=== PATIENT | female | born 1970 | race Two or more races ===

== ENCOUNTER → 2024-07-14 | Outpatient (CLI) | payer BC, MEDICAID, SELFPAY ==
--- NOTE | 2024-07-14 13:45 | XR_ITS ---
Examination: Breast ultrasound complete, bilateral Date and time of exam: July 14, 2024 1347 hours INDICATIONS: Left breast pain beginning 6 months ago, family history sister breast cancer Technique: Real-time grayscale ultrasonographic imaging bilateral breasts, including all 4 quadrants as well as nipple retroareolar and axillary regions. Findings: Sonographic images right breast 1:00 cyst 5 x 4 mm, no solid nodules Sonographic images left breast 12:00 cyst, 9 x 11 mm, no solid nodules IMPRESSION: BI-RADS Category 2: Benign findings
--- NOTE | 2024-07-14 14:45 | XR_ITS ---
Examination: Diagnostic digital mammography, unilateral, left Computer aided detection 3-D breast Tomosynthesis, unilateral Date and time of exam: July 14, 2024 1418 hours INDICATIONS: Mammogram April 13, 2024 18 mm focal asymmetry left breast upper inner left breast anterior depth Technique: Nonmagnified MLO, CC views of the left breast have been obtained, reconstructed from 3-D Tomosynthesis images. R2 computer aided detection program utilized for evaluation of suspicious masses and/or abnormal calcifications. 3-D Tomosynthesis images obtained. Findings: The breast is heterogeneously dense, which may obscure small masses There remains asymmetry upper left breast on the spot compression view, probably benign Impression: BI-RADS category 3: Probably benign findings Recommend 1 additional 6 month left mammogram follow-up
== END | disposition home or self-care (01) ==
PROVIDERS: Referring Provider Nurse Practitioner Family; Visit Provider Nurse Practitioner Family
DX: R92.332 Mammographic heterogeneous density, left breast (principal); N60.02 Solitary cyst of left breast; N60.01 Solitary cyst of right breast; Z80.3 Family history of malignant neoplasm of breast
CPT/HCPCS: 76641; 77061; 77065; G0279

== ENCOUNTER 2024-07-22 10:17 | Emergency (ER) | payer BC, MEDICAID, SELFPAY ==
[2024-07-22 10:18] VITALS: BMI 36.0
[2024-07-22 10:22] VITALS: BP 133/88; PULSE 74; RESP 19; TEMP 36.9; O2SAT 97
--- NOTE | 2024-07-22 12:13 | PD.EDRME ---
Rapid Medical Screening Exam RME Arrival date/time: 07/22/24 10:17 54-year-old female presents to the emergency department today with complaints of left arm pain after fall yesterday Chief Complaint: Extremity Injury, Upper Time Seen by Provider: 07/22/24 10:18 Vital signs: Vital Signs Temperature 98.5 F 07/22/24 10:22 Pulse Rate 74 07/22/24 10:22 Respiratory Rate 19 07/22/24 10:22 Blood Pressure 133/88 H 07/22/24 10:22 Pulse Oximetry (%) 97 07/22/24 10:22 Oxygen Delivery Method Room Air 07/22/24 10:22
--- NOTE | 2024-07-22 13:04 | PC.NURSE ---
CALLED PATIENT, NO ANSWER IN LOBBY OR OUTSIDE ED X3
== END 2024-07-22 13:05 | disposition left against medical advice (07) ==
PROVIDERS: Emergency Provider Emergency Medicine; PCP Nurse Practitioner Family
DX: S49.92XA Unspecified injury of left shoulder and upper arm, initial encounter (principal); W19.XXXA Unspecified fall, initial encounter; Z53.29 Procedure and treatment not carried out because of patient's decision for other reasons
CPT/HCPCS: 99281

== ENCOUNTER → 2024-09-29 | Outpatient (CLI) | payer BC, MEDICAID, SELFPAY ==
--- NOTE | 2024-09-29 15:00 | XR_ITS ---
Examination: Breast ultrasound, unilateral, left complete Date and time of exam: September 29, 2024 1443 hours Indications: Left breast pain 6 months Technique: Real-time hayden scale ultrasonographic imaging performed left breast including all 4 quadrants as well as nipple retroareolar and axillary region. Findings: 2:00 irregular hyperechoic mass 10 x 4 x 9 mm 10:00 cyst 6 x 5 mm IMPRESSION: BI-RADS Category 4: Suspicious for malignancy Suspicious mass 2:00 position left breast, biopsy is needed to exclude breast carcinoma, this mass is amenable to ultrasound-guided breast biopsy for diagnosis
== END | disposition home or self-care (01) ==
LOC: CDIM 15:05
PROVIDERS: PCP Nurse Practitioner Family; Referring Provider Nurse Practitioner Family; Visit Provider Nurse Practitioner Family
DX: N63.21 Unspecified lump in the left breast, upper outer quadrant (principal)
CPT/HCPCS: 76641

== ENCOUNTER → 2025-01-05 | Outpatient (CLI) | payer BC, MEDICAID, SELFPAY ==
[2025-01-04 13:32] LABS: Basophils # (Auto) 0.1 Thou/mm3 (0.0-0.2); Basophils % (Auto) 1 % (0-2.5); Eosinophils # (Auto) 0.1 Thou/mm3 (0.0-0.5); Eosinophils % (Auto) 1 % (0-10); Hematocrit 40.4 % (36.0-46.0); Immature Granulocytes % (Auto) 0 % (0-0); Immature Granulocytes Auto 0.05 Thou/mm3 (0.00-0.00); Lymphocytes # (Auto) 3.1 Thou/mm3 (1.0-4.8); Lymphocytes % (Auto) 27 % (10-50); Mean Corpuscular HGB Conc 34.7 g/dl (31.0-37.0); Mean Corpuscular Hemoglobin 29.5 pg (25.0-35.0); Mean Corpuscular Volume 85 fL (80-100); Monocytes # (Auto) 0.5 Thou/mm3 (0.0-0.8); Monocytes % (Auto) 4 % (0-12); Neutrophils # (Auto) 7.7 Thou/mm3 (1.8-7.7); Neutrophils % (Auto) 67 % (37-80); Nucleated Red Blood Cell % 0 /100 WBC (0); Platelet Count 249 Thou/mm3 (140-440); RDW Standard Deviation 40.2 fL (36.4-46.3); Red Blood Count 4.74 Miln/mm3 (4.00-5.20); White Blood Count 11.5 Thou/mm3 (3.6-11.0)
[2025-01-04 13:41] LABS: Partial Thromboplastin Time 30.3 Seconds (22.0-36.0); Prothrombin Time 10.9 Seconds (9.0-12.2)
--- NOTE | 2025-01-05 09:30 | XR_ITS ---
Examinations: Ultrasound-guided percutaneous breast biopsy, left breast 2:00 nodule Left breast sonography limited INDICATIONS:: BI-RADS 4 suspicious nodule left breast 2:00 position left breast sonogram September 29, 2024 Exam date and time: January 05, 2025 1040 hours. Informed consent provided. Technique: A timeout was completed verifying correct patient, procedure, site, positioning, and special equipment if applicable Informed consent provided. The patient was placed in a supine position for the breast biopsy. Sonographic images of the breast were performed for localization of the suspicious nodule The patient's breast was prepped and draped in sterile fashion. Maximum sterile barrier technique, hand hygiene, ultrasound sterile technique 1% lidocaine was used to anesthetize the skin and breast adjacent to the suspicious nodule. Utilizing ultrasonographic guidance, 8 core biopsies were obtained of the suspicious nodule utilizing an 18-gauge BioPince needle. The specimens appears satisfactory. US guided breast biopsy marker placement. Estimated blood loss 3 cc. The patient tolerated the procedure well and there were no complications. Impression: Successful ultrasound-guided percutaneous breast biopsy, left breast 2:00 nodule. Ultrasound guided breast biopsy marker placement.
== END | disposition home or self-care (01) ==
LOC: SIRX 09:23
PROVIDERS: Radiology Diagnostic Radiology; PCP Nurse Practitioner Family; Referring Provider Nurse Practitioner Family; Visit Provider Nurse Practitioner Family
DX: D24.2 Benign neoplasm of left breast (principal); N60.12 Diffuse cystic mastopathy of left breast; Z01.812 Encounter for preprocedural laboratory examination
CPT/HCPCS: 19083; 36415; 85025; 85610; 85730; A4648; A4649